=== PATIENT | male | born 1960 | race Caucasian/White ===

== ENCOUNTER → 2016-12-10 | Day surgery (SDC) | payer BC ==
[~2016-12-10] MED LIST: BACTRIM DS TABL1 TAB PO; DAILY VALUE1 EACH PO; FISH OIL 1,2001 CAP PO; FLAGYL PO; FLAX SEED OIL1000 M1 PO; IBUPROFEN PO; LAMISIL250 MG PO; LEVAQUIN PO; MULTI VITAMIN1 EACH PO; NASAL SPRAY; NO MEDICATIONS; NORCO1 TAB 10/3 PO; VICODIN 5/500 T1 TAB PO; ZOFRAN ODT4 MG DOB; ZOFRAN ODT4 MG SL; ZOFRAN ODT4 MG/UDTAB PO
--- NOTE | ~2016-12-10 | OR ---
Unit #: [id number] #: [id number] Patient: MARILEE ZAMORANO [id number] [address] [place], [place] [address] [id number] MR#: [id number] NAME: MARILEE ZAMORANO ROOM: Date of Procedure: 12/10/2016 Admission Date: 12/10/2016 Surgeon: Jhony Mendoza M.D. : 1960 Attending Physician: Jhony Mendoza M.D. Primary Care Physician: Grecia Rush M.D. OPERATIVE REPORT PREOPERATIVE DIAGNOSES The patient presented with history of left lower quadrant abdominal pain and findings on CAT scan consistent with acute diverticulitis. The purpose of colonoscopy is to look for any colorectal neoplasia and clarify the CT findings. The patient's episode of diverticulitis not completely resolved. POSTOPERATIVE DIAGNOSES 1. Mild sigmoid diverticulosis otherwise. 2. A single small sessile polyp in the distal ascending colon. The latter was removed using cold biopsy forceps. 3. Rest of examination up to cecum and terminal ileum was normal. The quality of prep was excellent. RECOMMENDATIONS 1. Follow up results of polyp histology. 2. High-fiber diet. 3. Repeat colonoscopy in 5 years. SEDATION USED MAC. DESCRIPTION OF PROCEDURE Following detailed explanation of the potential risks and complications of a colonoscopy, namely perforation, bleeding, and complications related to sedation, the patient was brought to GI lab and laid in the left lateral decubitus position. A digital rectal examination was performed, which was normal. Lubricated tip of the Olympus video colonoscope was inserted through the anus and advanced under direct vision. The scope was advanced and passed up to sigmoid into descending colon. Scant small diverticula were seen in this area. However, no evidence of diverticulitis or telltale signs of recent diverticulitis were seen. The scope tip was then navigated all the way up to cecum with visualization of the ileocecal valve and the appendiceal orifice. Preparation was excellent with good visualization and photodocumentation was obtained. Last several inches of terminal ileum also visualized after intubation of the ileocecal valve and appeared normal. Successive segments of the colonic mucosa were examined upon withdrawal. A single sessile polyp was noted in the distal ascending colon. This was about 4 to 5 mm in size. It was removed using cold biopsy forceps. The polyp fragments were retrieved and sent for histology. No additional polyps noted. Other than the scant diverticula seen in the left side, no other abnormalities were found. The patient did Unit #: [id number] #: [id number] Patient: MARILEE ZAMORANO not have any hemorrhoids at anal verge. The scope was then withdrawn. The patient returned to recovery area. He tolerated the procedure without any postprocedure complications. Dictated by... Dwayne Dickson/yas TD: 12/10/2016 23:31 JOB #: [id number] CC: Kelley Lopez M.D. OPERATIVE REPORT X Jhony Mendoza MD X PROCEDURE OPERATIVE NOTE
== END | disposition home or self-care (01) ==
LOC: COPS 06:33
DX: D12.2 Benign neoplasm of ascending colon (principal); K57.30 Diverticulosis of large intestine without perforation or abscess without bleeding; G47.30 Sleep apnea, unspecified; R73.03 Prediabetes; Z90.49 Acquired absence of other specified parts of digestive tract
CPT/HCPCS: 82947; 88305; J2250